=== PATIENT | female | born 1965 | race Caucasian/White ===

== ENCOUNTER 2017-05-04 07:18 | Emergency (ER) | payer OTHER ==
[~2017-05-04] VITALS: Ht 162.6 cm; Wt 73.6 kg
[2017-05-04 07:51] LABS: ADD MIUA? YES; BILIRUBIN NEGATIVE; BLOOD LARGE; GLUCOSE (STRIP) NEGATIVE; KETONES NEGATIVE; LEUKOCYTES NEGATIVE; NITRITE NEGATIVE; PROTEIN (STRIP) >=500; UROBILINOGEN 0.2 MG/DL (0.2-1.0)
[2017-05-04 07:52] LABS: COLOR YELLOW ((YELLOW))
[2017-05-04 07:57] LABS: MCH 32.9 PG (29.0-34.0); MCHC 35.9 G/DL (30.0-36.0); MCV 91.6 FL (83-99); MEAN PLAT.VOLUME 10.1 uM^3 (9.5-12.4); PLATELET COUNT 248 K/uL (156-360); RBC DIS.WIDTH-CV 11.1 % (11.8-14.6); RBC DIS.WIDTH-SD 37.7 % (39-53); RED BLOOD COUNT 3.71 M/uL (3.80-5.20); WHITE BLOOD COUNT 4.9 K/uL (4.1-10.2)
[2017-05-04 08:07] LABS: RED BLOOD CELLS 40-50 /HPF (0-5); WHITE BLOOD CELLS 0-5 /HPF (0-5)
[2017-05-04 08:08] LABS: EPITHELIAL CELLS RARE /HPF; MUCUS 1+ /LPF
[2017-05-04 08:09] LABS: BACTERIA 1+ /HPF; CASTS NONE SEEN /LPF; CRYSTALS PRESENT
[2017-05-04 08:10] LABS: CALCIUM OXALATE CRYSTALS 1+ /HPF
[2017-05-04 08:27] LABS: ANION GAP 9 MEQ/L (2-14); CHLORIDE 108 MEQ/L (99-109); POTASSIUM 3.4 MEQ/L (3.7-5.4); SAMPLE HEMOLYSIS CHECK 0; SAMPLE ICTERIC CHECK 0; SAMPLE LIPEMIA CHECK 0; SODIUM 139 MEQ/L (136-147)
[2017-05-04 08:33] LABS: GFR ESTIMATE (CALCULATED) > 59 mL/min/; GLUCOSE 98 mg/dL (70-99); UREA NITROGEN (BUN) 9 mg/dL (9-23)
[2017-05-04] MEDS ORDERED: FLOMAX0.4 MG PO (09:43)
[2017-05-04] MEDS ORDERED: NORCO 5/3251 TABLET PO (09:43)
[2017-05-04] MEDS ORDERED: MOTRIN800 MG PO (09:43)
[2017-05-04 10:19] VITALS: BP 154/99
== END 2017-05-04 10:35 | disposition home or self-care (01) ==
LOC: EME 07:18
PROVIDERS: Nurse Practitioner Family
DX: N13.2 Hydronephrosis with renal and ureteral calculous obstruction (principal); N28.1 Cyst of kidney, acquired; E87.6 Hypokalemia; N88.8 Other specified noninflammatory disorders of cervix uteri; M53.84 Other specified dorsopathies, thoracic region; M06.9 Rheumatoid arthritis, unspecified; Z87.442 Personal history of urinary calculi; Z87.891 Personal history of nicotine dependence
CPT/HCPCS: 74176; 80048; 81003; 85027; 99281; 99283